=== PATIENT | female | born 1990 | race Caucasian/White ===

== ENCOUNTER → 2017-03-10 | Outpatient (CLI) | payer OTHER | LOC: FIMAGING 11:12 → EEVIPCON 11:12 | PROVIDERS: ATTEND Obstetrics & Gynecology | DX: N63 Unspecified lump in breast (principal) ==

== ENCOUNTER 2017-12-06 15:20 | Emergency (ER) | payer OTHER ==
--- NOTE | 2017-12-06 15:31 | EDPHY ---
H & P Stated Complaint: cough/fever/bosy aches/cp sent post stress test at [facility] 28 w Time Seen by Provider: 12/06/17 15:30 HPI/ROS: CHIEF COMPLAINT: Cough, fever, dyspnea HISTORY OF PRESENT ILLNESS: The patient presents to the emergency department with complaints of cough, fever dyspnea. She is currently 28 weeks . She has developed right posterior pleuritic chest pain over the past day. She denies any asymmetric calf pain or swelling. The patient does report a family history of blood clots although she has no prior history of thromboembolic disease. The patient denies any vaginal bleeding or discharge. She denies dysuria. She does complain of bilateral lower back pain. The patient was seen at her art dealer's office and had an unremarkable evaluation nonstress test. REVIEW OF SYSTEMS: A comprehensive 10 point review of systems is otherwise negative aside from elements mentioned in the history of present illness. Source: Patient Exam Limitations: No limitations - Personal History LMP (Females 10-55): Current Tetanus/Diphtheria Vaccine: Yes - Medical/Surgical History Hx Asthma: No Hx Chronic Respiratory Disease: No Hx Diabetes: No Hx Cardiac Disease: No Hx Renal Disease: No Hx Cirrhosis: No Hx Alcoholism: No Hx HIV/AIDS: No Hx Splenectomy or Spleen Trauma: No Other PMH: 2013 with JABARI - Social History Smoking Status: Never smoked - Physical Exam Exam: General Appearance: Alert, no distress Eyes: Pupils equal and round no pallor or injection ENT, Mouth: Mucous membranes moist Respiratory: There are no retractions, lungs are clear to auscultation Cardiovascular: Tachycardic Gastrointestinal: Gravid, no focal tenderness Neurological: 5/5 strength noted all 4 extremities Skin: Warm and dry, no rashes Musculoskeletal: Neck is supple nontender Extremities: symmetrical, full range of motion Constitutional: Initial Vital Signs Temperature (C) 37.2 C 12/06/17 15:24 Heart Rate 129 H 12/06/17 15:24 Respiratory Rate 20 12/06/17 15:24 Blood Pressure 111/51 L 12/06/17 15:24 O2 Sat (%) 98 12/06/17 15:24 O2 Delivery Mode Room Air Allergies/Adverse Reactions: No Known Allergies Allergy (Verified 12/06/17 15:23) Home Medications: Medication Instructions Recorded Ferrous Sulfate [Iron] 1 tab PO DAILY 09/15/16 Vit27&Calcium/Iron/FA 1 tab PO DAILY 09/15/16 [] Oseltamivir Phosphate [Tamiflu] 75 mg PO BID #10 cap 12/06/17 Medical Decision Making ED Course/Re-evaluation: The patient presents the ED for evaluation of several complaints. She has had fever, myalgias and flu-like illness for the past several days. The patient also has a 1 day history of acute right pleuritic chest pain. The patient does have a family medical history positive for thromboembolic disease. The patient herself has no history of PE or DVT. She was noted to be tachycardic upon arrival. The patient's flu test was positive. The patient's D-dimer test was also elevated. Given her complaints of pleuritic chest pain and tachycardia coupled with her family medical history I did feel it was important to exclude pulmonary embolism as a concurrent diagnosis. A CT pulmonary angiogram was performed which demonstrated no evidence of a PE or pneumonia. The patient was started on Tamiflu in the emergency department and will be given a prescription for Tamiflu for the next 5 days. She is advised to continue to take Tylenol as needed for pain. She will be discharged home with customary aftercare instructions and return precautions. Differential Diagnosis: Differential diagnosis considered includes influenza, pneumonia, pulmonary embolism, dehydration, anemia - Data Points Laboratory Results: Laboratory Results 12/06/17 15:57 12/06/17 15:57 12/06/17 12/06/17 12/06/17 15:57 15:57 15:57 WBC 5.14 10^3/uL 10^3/uL (3.80-9.50) RBC 3.25 10^6/uL L 10^6/uL (4.18-5.33) Hgb 10.9 g/dL L g/dL (12.6-16.3) Hct 30.6 % L % (38.0-47.0) MCV 94.2 fL fL (81.5-99.8) MCH 33.5 pg pg (27.9-34.1) MCHC 35.6 g/dL g/dL (32.4-36.7) RDW 13.2 % % (11.5-15.2) Plt Count 201 10^3/uL 10^3/uL (150-400) MPV 8.6 fL L fL (8.7-11.7) Neut % (Auto) 74.8 % H % (39.3-74.2) Lymph % (Auto) 11.1 % L % (15.0-45.0) [place] % (Auto) 11.7 % % (4.5-13.0) Eos % (Auto) 0.8 % % (0.6-7.6) Baso % (Auto) 0.4 % % (0.3-1.7) Nucleat RBC Rel Count 0.0 % % (0.0-0.2) Absolute Neuts (auto) 3.85 10^3/uL 10^3/uL (1.70-6.50) Absolute Lymphs (auto) 0.57 10^3/uL L 10^3/uL (1.00-3.00) Absolute Monos (auto) 0.60 10^3/uL 10^3/uL (0.30-0.80) Absolute Eos (auto) 0.04 10^3/uL 10^3/uL (0.03-0.40) Absolute Basos (auto) 0.02 10^3/uL 10^3/uL (0.02-0.10) Absolute Nucleated RBC 0.00 10^3/uL 10^3/uL (0-0.01) Immature Gran % 1.2 % H % (0.0-1.1) Immature Gran # 0.06 10^3/uL 10^3/uL (0.00-0.10) D-Dimer 1.21 ug/mLFEU H ug/mLFEU (0.00-0.50) Sodium 139 mEq/L mEq/L (135-145) Potassium 3.6 mEq/L mEq/L (3.5-5.2) Chloride 106 mEq/L mEq/L (97-110) Carbon Dioxide 20 mEq/l L mEq/l (22-31) Anion Gap 13 mEq/L mEq/L (8-16) BUN 5 mg/dL L mg/dL (7-23) Creatinine 0.5 mg/dL L mg/dL (0.6-1.0) Estimated GFR > 60 Glucose 75 mg/dL mg/dL (70-100) Calcium 9.0 mg/dL mg/dL (8.5-10.4) Nasal Influenza A PCR Nasal Influenza B PCR 12/06/17 15:57 WBC RBC Hgb Hct MCV MCH MCHC RDW Plt Count MPV Neut % (Auto) Lymph % (Auto) [place] % (Auto) Eos % (Auto) Baso % (Auto) Nucleat RBC Rel Count Absolute Neuts (auto) Absolute Lymphs (auto) Absolute Monos (auto) Absolute Eos (auto) Absolute Basos (auto) Absolute Nucleated RBC Immature Gran % Immature Gran # D-Dimer Sodium Potassium Chloride Carbon Dioxide Anion Gap BUN Creatinine Estimated GFR Glucose Calcium Nasal Influenza A PCR FLU A DETECTED H (NEGATIVE) Nasal Influenza B PCR NEGATIVE FOR FLU B (NEGATIVE) Medications Given: Discontinued Medications Oseltamivir Phosphate (Tamiflu) 75 mg PO EDNOW ONE Stop: 12/06/17 17:46 Last Admin: 12/06/17 17:56 Dose: 75 mg Departure - Departure Disposition: Home, Routine, Self-Care Clinical Impression: Influenza, Pleuritic pain, Intrauterine Condition: Good Instructions: Influenza (ED) Additional Instructions: 1. Tamiflu as directed for next [address] scan demonstrates no evidence of a blood clot or pneumonia. 3. Tylenol as needed for pain. 4. Return to the ED for markedly worsening symptoms. 5. Please follow up with your art dealer as scheduled. Referrals: Lizett Herman MD [Medical Doctor] - As per Instructions Prescriptions: Oseltamivir Phosphate [Tamiflu] 75 mg PO BID #10 cap
[2017-12-06 16:06] LABS: PLATELET COUNT 201 10^3/uL (150-400)
[2017-12-06] MEDS ORDERED: IOPAMIDOL (ISOVUE 370) 100 ML BTL IV ONE (16:50)
[2017-12-06] MEDS ORDERED: OSELTAMIVIR PHOSPHATE 75 MG CAP PO ONE (17:45)
[2017-12-06 17:58] VITALS: BP 117/61; PULSE 106; O2SAT 100
[2017-12-06 18:47] VITALS: RESP 18; TEMP 98.6
== END 2017-12-06 18:47 | disposition home or self-care (01) ==
DX: O99.512 Diseases of the respiratory system complicating pregnancy, second trimester (principal); J11.1 Influenza due to unidentified influenza virus with other respiratory manifestations; Z3A.28 28 weeks gestation of pregnancy
CPT/HCPCS: Q9967

== ENCOUNTER 2018-02-21 06:00 | Inpatient (IN) | payer OTHER ==
[2018-02-21] MEDS ORDERED: OLIVE OIL 118 ML BTL MISC PRN (06:35)
[2018-02-21] MEDS ORDERED: EPSOM SALT 454 GM TP PRN (06:35)
[2018-02-21] MEDS ORDERED: MISOPROSTOL 200 MCG TAB PR PRN (06:35)
[2018-02-21] MEDS ORDERED: TERBUTALINE SULFATE 1 MG/ML VIAL IV PRN (06:35)
[2018-02-21] MEDS ORDERED: OXYTOCIN/NORMAL SALINE 1,000 ML IV PRN (06:35)
[2018-02-21] MEDS ORDERED: LR 500 ML IV PRN (06:35)
[2018-02-21] MEDS ORDERED: OXYTOCIN/NORMAL SALINE 500 ML IV SCH (06:35)
[2018-02-21] MEDS ORDERED: LIDOCAINE 1% 300 MG/30 ML SDV SC PRN (06:35)
[2018-02-21 07:19] LABS: PLATELET COUNT 188 10^3/uL (150-400)
[2018-02-21] MEDS ORDERED: AMMONIA AROMATIC 1 EACH AMP IH ONE (07:47)
[2018-02-21] MEDS ORDERED: OLIVE OIL 118 ML BTL ONE (07:47)
[2018-02-21] MEDS ORDERED: LIDOCAINE 1% 300 MG/30 ML SDV ONE (07:47)
[2018-02-21] MEDS ORDERED: TERBUTALINE SULFATE 1 MG/ML VIAL ONE (07:47)
[2018-02-21] MEDS ORDERED: MISOPROSTOL 200 MCG TAB ONE (07:48)
[2018-02-21] MEDS ORDERED: OXYTOCIN 10 UNIT/ML VIAL ONE (07:48)
--- NOTE | 2018-02-21 07:51 | PDGENHP ---
History and Physical History and Physical: HPI: Patient is a 27 yo G 3 P 2 who presents to L&D for elective IOL. She had a king bulb placed in the office yesterday at 5 pm and went home for the night. She states baby is active, denies painful contractions, vaginal bleeding or LOF. EDC: 02/25/2018 which is based on 12 week U/S. Her is complicated by: - short interval - pos chlamydia at NOB intake 07/31, NACHO neg 09/30 - anemia - has been taking iron supplement throughout Review of Systems: Constitutional: Denies any fever, chills, or fatigue HEENT: denies any visual changes, difficulty swallowing, hearing loss Cardiovascular: Denies any chest pain, palpitations, leg swelling Respiratory: denies any cough, wheezing, or shortness of breathe GI: Denies any nausea, vomiting, diarrhea, constipation : denies any dysuria, urgency, frequency, vaginal bleeding Musculoskeletal: denies any muscle or bone pain Skin: denies any rashes Neuro: denies any headache, seizures, lightheadedness, dizziness, or loss of consciousness Psychiatric: denies any depression, anxiety, or SI/HI thoughts HISTORY: Previous OB history: uncomplicated X2 Past medical history: pos chlamydia 07/31, NACHO neg Past surgical history: non-contributory Medications: PNV, ferrous sulfate Allergies (list reaction): NKDA LABS: Rh: O+ ABS: Neg Rubella: Immune HbsAg: NR HIV: NR VDRL: NR 1hr: 109 GC: Neg Chlamydia: Pos 08/03/17, NACHO neg 09/28/17 Pap: Normal 01/27 GBS: neg BMI: (prepreg) 22 PHYSICAL EXAM: Constitutional: WN, A&Ox3 HEENT: normocephalic atraumatic, supple Heart: RRR, no murmur Chest: CTA-B Abdomen: Soft, nontender, gravid SVE: 3/50/-3 Extremities: mild edema, negative felicia's sign Neuro: grossly normal Psych: normal affect assessment: Reassuring FHTs, baseline 140 +accels, no decels, moderate variability Contractions: toco irregular, mild contractions Assessment: 1) 27 yo G 3 P 2 with IUP@ 39.3 weeks EGA 2) Elective IOL 3) GBS neg Plan: 1) Admit to L&D 2) King bulb removed with tugging - will start pitocin 3) pain relief PRN- would like epidural 4) AROM when able 5) Anticipate
[2018-02-21] MEDS: LR 1,000 ML IV PRN ×2 (08:24→13:31)
[2018-02-21] MEDS ORDERED: fentaNYL 200 MCG, BUPIVACAINE 0.5% 20 ML in NS 100 ML EP SCH (11:30)
[2018-02-21] MEDS ORDERED: BUPIVACAINE 0.25% 30 ML SDV ONE ×2 (11:46→13:22)
[2018-02-21] MEDS ORDERED: PHENYLEPHRINE HCL 100 MCG/ML SYR ONE (11:47)
[2018-02-21] MEDS ORDERED: PHENYLEPHRINE HCL 100 MCG/ML SYR IVP PRN (12:14)
--- NOTE | 2018-02-21 12:14 | PREANESOB ---
Obstetric Pre-Anesthesia Info - General Info Proposed Procedure: JABARI : 3 Para: 2 TITI: 02/25/18 Gestational Age: 39 week(s) and 3 day(s) - Info Status: Full Term, [place] Monitors: External FHR Pattern: Reassuring - Labor Status Pitocin: In Use PIH: No Indications for Labor Analgesia: Augmentation of Labor, Pain Control Labor Epidural: Proposed Anesthesia Allergies/Adverse Reactions: Allergy/AdvReac Type Severity Reaction Status Date / Time No Known Allergies Allergy Verified 12/06/17 15:23 Home Medications: Medication Instructions Recorded Ferrous Sulfate [Iron] 1 tab PO DAILY 09/15/16 Vit27&Calcium/Iron/FA 1 tab PO DAILY 09/15/16 [] Visit Medications: Generic Name Dose Route Start Last Admin Trade Name Freq PRN Reason Stop Dose Admin Lactated Ringer's 1,000 mls @ 0 mls/hr 02/21/18 06:35 02/21/18 08:24 Lr IV 02/22/18 06:34 1,000 mls PRN PRN Administration SEE PROTOCOL CONDITIONS Protocol Per Protocol Lactated Ringer's 500 mls @ 500 mls/hr 02/21/18 06:35 Lr IV 02/21/18 17:44 PRN PRN Maternal Hypotension Oxytocin/Sodium Chloride 1,000 mls @ 0 mls/hr 02/21/18 06:35 Pitocin 20 Units/Ns (Premix) IV PRN PRN Post Bleeding As Directed Oxytocin/Sodium Chloride 500 mls @ 0 mls/hr 02/21/18 06:35 02/21/18 08:09 Pitocin 30 Units/Ns (Premix) IV 08/20/18 06:34 500 mls CONT COSMO Administration Protocol Per Protocol Fentanyl 200 mcg/ Bupivacaine 100 mls @ 0 mls/hr 02/21/18 11:30 HCl 20 ml/ Sodium Chloride EP 03/03/18 11:29 CONT COSMO Protocol As Directed Ibuprofen 600 mg 02/21/18 06:35 Motrin PO 08/20/18 06:34 Q6HRS PRN post , inflammation Lidocaine HCl 300 mg 02/21/18 06:35 Lidocaine Hcl 1% SC 08/20/18 06:34 ONCE PRN episiotomy Magnesium Sulfate 454 gm 02/21/18 06:35 Epsom Salt TP 08/20/18 06:34 Q1H PRN perineal discomfort Misoprostol 800 - 1,000 mcg 02/21/18 06:35 Cytotec LA ONCE PRN Vaginal Atony/Bleeding Dighton Oil 118 ml 02/21/18 06:35 Sweet Oil MISC 08/20/18 06:34 ONCE PRN perineal massage Terbutaline Sulfate 0.25 mg 02/21/18 06:35 Brethine IV 08/20/18 06:34 ONCE PRN Tachysystole Discontinued Medications Generic Name Dose Route Start Last Admin Trade Name Maritza PRN Reason Stop Dose Admin Ammonia (Aromatic Spirit) Confirm 02/21/18 07:47 Ammonia Aromatic Administered 02/21/18 07:48 Dose 1 each IH .STK-MED ONE Bupivacaine HCl Confirm 02/21/18 11:46 Sensorcaine 0.25% Sdv Administered 02/21/18 11:47 Dose 30 ml .ROUTE .STK-MED ONE Lidocaine HCl Confirm 02/21/18 07:47 Lidocaine Hcl 1% Administered 02/21/18 07:48 Dose 300 mg .ROUTE .STK-MED ONE Misoprostol Confirm 02/21/18 07:48 Cytotec Administered 02/21/18 07:49 Dose 1,000 mcg .ROUTE .STK-MED ONE Dighton Oil Confirm 02/21/18 07:47 Sweet Oil Administered 02/21/18 07:48 Dose 118 ml .ROUTE .STK-MED ONE Oxytocin Confirm 02/21/18 07:48 Pitocin Administered 02/21/18 07:49 Dose 40 unit .ROUTE .STK-MED ONE Phenylephrine HCl Confirm 02/21/18 11:47 Neosynephrine Administered 02/21/18 11:48 Dose 1,000 mcg .ROUTE .STK-MED ONE Terbutaline Sulfate Confirm 02/21/18 07:47 Brethine Administered 02/21/18 07:48 Dose 1 mg .ROUTE .STK-MED ONE - Vital Signs Height/Weight (Nursing): Height 175.26 cm Weight 80.739 kg - Focused Exam Neck exam: FROM Mallampati Score: Class 2 Mouth exam: normal dental/mouth exam Pulmonary: no respiratory distress Cardiovascular: regular rate and rhythym Labs: 02/21/18 07:00 Patient ABO/Rh O POSITIVE 02/21/18 07:00
--- NOTE | 2018-02-21 12:25 | POSTANESTH ---
Post Anesthetic Evaluation Cardiovascular Status: Normal, Stable, Similar to Pre-Op Cond Respiratory Status: Normal, Stable, Similar to Pre-op Cond. Level of Consciousness/Mental Status: Can Participate in Eval, Alert and Oriented Pain Control: Inadeq, Add Tx Required (Still having some pain, wendy Rt side. She pushed PCEA button.) Nausea/Vomiting Control: Adequate, Prn Tx Ordered Complications Possibly Related to Anesthesia: None Noted
[2018-02-21] MEDS ORDERED: fentaNYL 2MCG/ML/BUP 0.1% RTU 100 ML EP SCH (12:30)
[2018-02-21] MEDS ORDERED: LR 500 ML IV SCH (12:30)
[2018-02-21] MEDS ORDERED: fentaNYL 100 MCG/2 ML INJ ONE (13:22)
[2018-02-21] MEDS ORDERED: SIMETHICONE 80 MG TAB CHEW PO PRN (17:03)
[2018-02-21] MEDS ORDERED: ACETAMINOPHEN 325 MG TAB PO PRN (17:03)
[2018-02-21] MEDS ORDERED: DOCUSATE SODIUM 100 MG CAP PO PRN (17:03)
[2018-02-21] MEDS ORDERED: HYDROCORTISONE 0.5% CREAM TP PRN (17:03)
[2018-02-21] MEDS ORDERED: HYDROCODONE/APAP 5/325 TAB PO PRN (17:03)
--- NOTE | 2018-02-21 17:17 | OBDEL ---
Info Type: Vaginal Presentation at Delivery: Vertex L&D Analgesia/Anesthesia Type: Epidural GBS+: No Intrapartum Medications: Generic Name Dose Route Start Last Admin Trade Name Freq PRN Reason Stop Dose Admin Lactated Ringer's 1,000 mls @ 0 mls/hr 02/21/18 06:35 02/21/18 13:31 Lr IV 02/22/18 06:34 1,000 mls PRN PRN Administration SEE PROTOCOL CONDITIONS Protocol Per Protocol Oxytocin/Sodium Chloride 500 mls @ 0 mls/hr 02/21/18 06:35 02/21/18 08:09 Pitocin 30 Units/Ns (Premix) IV 08/20/18 06:34 500 mls CONT COSMO Administration Protocol Per Protocol - Hospital Course Intrapartum: 02/21/18 17:14 Elective IOL at 39.4 weeks ega Mario bulb overnight, pitocin induction in AM, epidural placed at noon, AROM at 1431 - advanced to complete at 1551 Indications for Delivery: Elective Vaginal Delivery - Delivery Provider Delivery Physician/CNM: Ely Blakely Proctoring Provider: Lizett Herman - Labor and Delivery Onset of Contractions Date: 02/21/18 Onset of Contractions Time: 09:00 Onset of Contractions Type: Induced Rupture of Membranes Date: 02/21/18 Rupture of Membranes Time: 14:31 Rupture of Membranes Type: Artificial Amniotic Fluid Color: Clear Dilation Complete Date: 02/21/18 Dilation Complete Time: 15:51 Placenta Delivery Date: 02/21/18 Placenta Delivery Time: 16:11 Total Hours of Labor: 7 Non-surgical Procedures: Amniotomy [place] Data TITI: 02/25/18 Gestational Age: 39 week(s) and 3 day(s) [place] Delivery Date: 02/21/18 Delivery Time: 16:02 Sex of Infant: Female Score (1 Min): 8 Score (5 Min): 9 ICD10 Worksheet Patient Problems: Problems Problem Status Onset SROM (spontaneous rupture of membranes) Acute (spontaneous vaginal delivery) Acute r/o PIH Acute - ICD10 Problem Qualifiers (1) (spontaneous vaginal delivery)
[2018-02-21] MEDS: IBUPROFEN 600 MG TAB PO PRN (18:11)
[2018-02-21] MEDS ORDERED: FERROUS SULFATE 325 MG TAB PO SCH (21:00)
[2018-02-22] MEDS: IBUPROFEN 600 MG TAB PO PRN ×3 (02:18→15:36)
[2018-02-22 02:54] VITALS: BP 101/57
--- NOTE | 2018-02-22 15:02 | OBPP ---
Progress Note Assessment/Plan: Assessment:27 yo almost 24 hours s/p , doing well. Desires homegoing. Plan: dc home, pp dc instructions reviewed. See instruction sheet and dc summary. 02/22/18 14:56 Subjective/ Course: 02/22/18 14:57 Doing well, BF going well. Normal amount of lochia. Voiding and ambulating without difficulty. Has some discomfort in her tailbone area. Objective: 02/22/18 05:55 Patient ABO/Rh O POSITIVE 02/21/18 07:00 Temp Pulse Resp BP Pulse Ox 36.6 C 77 16 101/57 L 96 02/22/18 02:40 02/22/18 02:40 02/22/18 02:40 02/22/18 02:40 02/22/18 02:40 CV - RRR Chest - CTAB abd - fundus u-3 and NT ext - no edema, no calf tenderness Uterine Position/Fundal Height: Umbilicus -3 Uterine Tone: Firm
--- NOTE | 2018-02-22 15:38 | OBGCSDC ---
General Delivery Information - General Info : 3 Para: 3 Type: Vaginal L&D Analgesia/Anesthesia Type: Epidural Admission Date: 02/21/18 Labs: Patient ABO/Rh O POSITIVE 02/21/18 07:00 Hct 32.5 % (38.0-47.0) L 02/22/18 05:55 - Hospital Course Intrapartum: 02/21/18 17:14 Elective IOL at 39.4 weeks ega Mario bulb overnight, pitocin induction in AM, epidural placed at noon, AROM at 1431 - advanced to complete at 1551 : 02/22/18 14:57 Doing well, BF going well. Normal amount of lochia. Voiding and ambulating without difficulty. Has some discomfort in her tailbone area. Vaginal - Delivery Provider Delivery Physician/CNM: Ely Blakely - Diagnosis Labor: Induced Rupture of Membranes Type: Artificial Amniotic Fluid Color: Clear - Procedures Non-surgical Procedures: Amniotomy - Delivery Non-surgical Procedures: Amniotomy Data TITI: 02/25/18 Gestational Age: 39 week(s) and 4 day(s) [place] Delivery Date: 02/21/18 Delivery Time: 16:02 Sex of : Female Alice Weight (gm): 3428 g Score (1 Min): 8 Score (5 Min): 9 Discharge Information - Discharge Information Condition: Good Instruction/Follow Up: See Instruction Sheet, Four Weeks ([facility] appt at [facility]), Six Weeks (regular 6 week check with a provider)
== END 2018-02-22 18:58 | disposition home or self-care (01) | DRG 775 ==
LOC: FLD 06:25 → FOB 20:00
PROVIDERS: ADMIT Obstetrics & Gynecology; ATTEND Obstetrics & Gynecology
PROC: 3E033VJ Introduction of Other Hormone into Peripheral Vein, Percutaneous Approach (ICD-10-PCS; principal; 2018-02-21)
PROC: 10907ZC Drainage of Amniotic Fluid, Therapeutic from Products of Conception, Via Natural or Artificial Opening (ICD-10-PCS; principal; 2018-02-21)
PROC: 10E0XZZ Delivery of Products of Conception, External Approach (ICD-10-PCS; principal; 2018-02-21)
DX: O99.02 Anemia complicating childbirth (principal); Z3A.39 39 weeks gestation of pregnancy; Z37.0 Single live birth
CPT/HCPCS: J2370; J2590; J3010; J3105

== ENCOUNTER 2018-03-12 15:51 | Emergency (ER) | payer OTHER ==
--- NOTE | 2018-03-12 16:05 | EDPHY ---
H & P Stated Complaint: FEVER/LOW BACK PAIN/DYSURIA Time Seen by Provider: 03/12/18 16:03 HPI/ROS: HPI: This is a 28-year-old female who presents with Chief Complaint: FEVER/LOW BACK PAIN/DYSURIA Location: Suprapubic, low back Quality: Discomfort Duration: 3 days Signs and Symptoms: no fever, no nausea, no vomiting, no hematemesis, no blood in stool, no abdominal bloating, no diarrhea,+ back pain, + urinary symptoms, no vaginal discharge/bleeding, no indigestion, no chest pain, no shortness of breath Timing: Gradual onset Severity: Moderate Context: Patient gave vaginal E approximately 2 weeks ago and is currently breast-feeding. Presents with complaints of suprapubic and lower back discomfort accompanied by burning with urination and urinary hesitancy. She had a fever last. Denies any vaginal bleeding/discharge/nausea/vomiting/ diarrhea. Patient is eating and drinking without difficulty. LMP over 28 days ago. Patient denies any injury or recent workout session. Back pain is nonradiating in nature and she denies paresthesias/weakness/decreased range of motion. Patient reports that OBGYN performed an ultrasound 5 days ago that showed some retained products but no vascular supply. She called Dr. Rocha today and was advised to go to the emergency room. Reports having daily bowel movements. Denies any hemorrhoids. Patient reports that she had influenza earlier in the year. 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 Family history noncontributory. CONSTITUTIONAL: Extremely polite and cooperative adult white female, awake and alert, no obvious distress HEENT: Atraumatic and normocephalic, PERRL, EOMI. Nares patent; no rhinorrhea; no nasal mucosal edema. Tympanic membranes clear. Oropharynx clear, no exudate and moist pink mucosa. Airway patent. No lymphadenopathy. No meningismus. Cardiovascular: Normal S1/S2, tachycardia, regular rhythm, without murmur rub or gallop. PULMONARY/CHEST: Symmetrical and nontender. Clear to auscultation bilaterally. Good air movement. No accessory muscle usage. ABDOMEN: Soft, nondistended, mild suprapubic tenderness, no rebound, no guarding, no peritoneal signs, no masses or organomegaly. No CVAT. PELVIC: Patient politely declines EXTREMITIES: 2/2 pulses, strength 5/5, no deformities, no clubbing, no cyanosis or edema. NEUROLOGICAL: no focal neuro deficits. GCS 15. SKIN: Warm and dry, no erythema. no rash. Good capillary refill. Source: Patient Exam Limitations: No limitations - Personal History LMP (Females 10-55): Over 28 Days Ago Current Tetanus/Diphtheria Vaccine: Yes - Medical/Surgical History Hx Asthma: No Hx Chronic Respiratory Disease: No Hx Diabetes: No Hx Cardiac Disease: No Hx Renal Disease: No Hx Cirrhosis: No Hx Alcoholism: No Hx HIV/AIDS: No Hx Splenectomy or Spleen Trauma: No Other PMH: 2013 & 2016 with JABARI, possible PIH with 1st - Social History Smoking Status: Never smoked Constitutional: Initial Vital Signs Temperature (C) 37.4 C 03/12/18 15:54 Heart Rate 119 H 03/12/18 15:54 Respiratory Rate 20 03/12/18 15:54 Blood Pressure 117/62 03/12/18 15:54 O2 Sat (%) 97 03/12/18 15:54 O2 Delivery Mode Room Air Allergies/Adverse Reactions: No Known Allergies Allergy (Verified 03/12/18 15:53) Home Medications: Medication Instructions Recorded Vit27&Calcium/Iron/FA 1 tab PO DAILY 09/15/16 [] Ciprofloxacin [Cipro] 500 mg PO BID #14 tab 03/12/18 Medical Decision Making - Diagnostics Imaging Results: Imaging Impressions Pelvic/Renal Ultrasound 03/12/18 16:31 Impression: Enlarged uterus. No evidence for retained products of conception. Minimal fluid in the endometrial cavity. Results called and discussed with Bailey Cole PA-C on March 12, 2018 at 1733 hours. ED Course/Re-evaluation: Labs, urinalysis, IV fluids, IV medications, pelvic ultrasound ordered Vital signs stable upon arrival. No systemic signs. Given 1 L normal saline, IV Toradol, IV Zofran Urinalysis shows infection; sent for culture; IV Rocephin given an Rx for Cipro for early pyelonephritis. 1735: Called by radiologist who advised that ultrasound shows no retained products; there is some fluid in the endometrium. Unable to see ultrasound outpatient to compare. 1749: Reassessed patient and discuss laboratory and imaging. Offered patient admission versus outpatient follow-up with Dr. Rocha. Patient would like to be discharged home with antibiotics to treat urinary tract infection will follow up with Dr. Rocha in the next 2-3 days. Vital signs improved at discharge. Tachycardia resolved. 181: Spoke with Dr. Rocha on the phone and reviewed all laboratory findings and ultrasound findings. She believes that this may be an early UTI as well and less likely endometritis. She has for the patient to call her office tomorrow morning in order to get a follow-up appointment on Tuesday. This patient was seen under the supervision of my secondary supervising physician. I evaluated care for this patient independently. Discussed this patient with Dr. Rudolph who did not see the patient. Differential Diagnosis: Abdominal pain in a female including but not limited to ovarian cyst, pelvic inflammatory disease, ovarian torsion, urinary tract infection, and appendicitis. - Data Points Laboratory Results: Laboratory Results 03/12/18 16:10 03/12/18 16:10 03/12/18 03/12/18 03/12/18 16:10 16:10 16:10 WBC 8.28 10^3/uL 10^3/uL (3.80-9.50) RBC 4.21 10^6/uL 10^6/uL (4.18-5.33) Hgb 13.7 g/dL g/dL (12.6-16.3) Hct 39.1 % % (38.0-47.0) MCV 92.9 fL fL (81.5-99.8) MCH 32.5 pg pg (27.9-34.1) MCHC 35.0 g/dL g/dL (32.4-36.7) RDW 12.4 % % (11.5-15.2) Plt Count 270 10^3/uL 10^3/uL (150-400) MPV 8.6 fL L fL (8.7-11.7) Neut % (Auto) 80.9 % H % (39.3-74.2) Lymph % (Auto) 10.0 % L % (15.0-45.0) [place] % (Auto) 8.1 % % (4.5-13.0) Eos % (Auto) 0.2 % L % (0.6-7.6) Baso % (Auto) 0.4 % % (0.3-1.7) Nucleat RBC Rel Count 0.0 % % (0.0-0.2) Absolute Neuts (auto) 6.70 10^3/uL H 10^3/uL (1.70-6.50) Absolute Lymphs (auto) 0.83 10^3/uL L 10^3/uL (1.00-3.00) Absolute Monos (auto) 0.67 10^3/uL 10^3/uL (0.30-0.80) Absolute Eos (auto) 0.02 10^3/uL L 10^3/uL (0.03-0.40) Absolute Basos (auto) 0.03 10^3/uL 10^3/uL (0.02-0.10) Absolute Nucleated RBC 0.00 10^3/uL 10^3/uL (0-0.01) Immature Gran % 0.4 % % (0.0-1.1) Immature Gran # 0.03 10^3/uL 10^3/uL (0.00-0.10) Sodium 143 mEq/L mEq/L (135-145) Potassium 3.9 mEq/L mEq/L (3.5-5.2) Chloride 106 mEq/L mEq/L (97-110) Carbon Dioxide 23 mEq/l mEq/l (22-31) Anion Gap 14 mEq/L mEq/L (8-16) BUN 13 mg/dL mg/dL (7-23) Creatinine 0.7 mg/dL mg/dL (0.6-1.0) Estimated GFR > 60 Glucose 113 mg/dL H mg/dL (70-100) Calcium 9.4 mg/dL mg/dL (8.5-10.4) Beta HCG, Qual NEGATIVE Urine Color Urine Appearance Urine pH Ur Specific [place] Urine Protein Urine Ketones Urine Blood Urine Nitrate Urine Bilirubin Urine Urobilinogen Ur Leukocyte Esterase Urine RBC Urine WBC Ur Epithelial Cells Urine Bacteria Urine Mucus Urine Glucose 03/12/18 15:56 WBC RBC Hgb Hct MCV MCH MCHC RDW Plt Count MPV Neut % (Auto) Lymph % (Auto) [place] % (Auto) Eos % (Auto) Baso % (Auto) Nucleat RBC Rel Count Absolute Neuts (auto) Absolute Lymphs (auto) Absolute Monos (auto) Absolute Eos (auto) Absolute Basos (auto) Absolute Nucleated RBC Immature Gran % Immature Gran # Sodium Potassium Chloride Carbon Dioxide Anion Gap BUN Creatinine Estimated GFR Glucose Calcium Beta HCG, Qual Urine Color YELLOW Urine Appearance CLEAR Urine pH 5.0 (5.0-7.5) Ur Specific [place] 1.006 (1.002-1.030) Urine Protein NEGATIVE (NEGATIVE) Urine Ketones NEGATIVE (NEGATIVE) Urine Blood NEGATIVE (NEGATIVE) Urine Nitrate NEGATIVE (NEGATIVE) Urine Bilirubin NEGATIVE (NEGATIVE) Urine Urobilinogen NEGATIVE EU EU (0.2-1.0) Ur Leukocyte Esterase 1+ H (NEGATIVE) Urine RBC 1-3 /hpf /hpf (0-3) Urine WBC 5-10 /hpf H /hpf (0-3) Ur Epithelial Cells TRACE /lpf /lpf (NONE-1+) Urine Bacteria 1+ /hpf H /hpf (NONE SEEN) Urine Mucus TRACE /lpf /lpf (NONE-1+) Urine Glucose NEGATIVE (NEGATIVE) Medications Given: Discontinued Medications Sodium Chloride (Ns) 1,000 mls @ 0 mls/hr IV ONCE ONE; Wide Open PRN Reason: Protocol Stop: 03/12/18 16:08 Last Admin: 03/12/18 16:30 Dose: 1,000 mls Ketorolac Tromethamine (Toradol) 30 mg IVP EDNOW ONE Stop: 03/12/18 16:08 Last Admin: 03/12/18 16:30 Dose: 30 mg Ondansetron HCl (Zofran) 4 mg IVP EDNOW ONE Stop: 03/12/18 16:08 Last Admin: 03/12/18 16:30 Dose: 4 mg Departure - Departure Disposition: Home, Routine, Self-Care Clinical Impression: Lower urinary tract infection, acute Condition: Good Instructions: Urinary Tract Infection in Women (ED) Additional Instructions: Consume a minimum of 8-10 glasses of water or electrolyte fluid replacement drinks that include Gatorade, Powerade, Pedialyte. Eat a bland diet for the next 48 hours and then slowly advance as tolerated. Take Ciprofloxacin twice daily x [address] Rocha's office tomorrow for follow up appointment time on Tuesday. Return to the ER immediately if you experience new, continued or worsening abdominal pain, fevers/chills, inability to tolerate oral intake, new pain, or any other symptoms that concern you. Referrals: Irene Rocha DO [Doctor of Osteopathy] - As per Instructions Prescriptions: Ciprofloxacin [Cipro] 500 mg PO BID #14 tab
[2018-03-12] MEDS ORDERED: KETOROLAC 30 MG/1 ML SDV IVP ONE (16:07)
[2018-03-12] MEDS ORDERED: ONDANSETRON 4 MG/2 ML VIAL IVP ONE (16:07)
[2018-03-12] MEDS ORDERED: NS 1,000 ML IV ONE (16:07)
[2018-03-12 16:22] LABS: PLATELET COUNT 270 10^3/uL (150-400)
[2018-03-12] MEDS ORDERED: KETOROLAC 30 MG/1 ML SDV ONE (16:36)
[2018-03-12] MEDS ORDERED: cefTRIAXone 2 GM in STERILE WATER INJ 20 ML IV ONE (17:36)
[2018-03-12 18:35] VITALS: BP 112/67
== END 2018-03-12 18:34 | disposition home or self-care (01) ==
DX: N39.0 Urinary tract infection, site not specified (principal); B96.89 Other specified bacterial agents as the cause of diseases classified elsewhere; E86.9 Volume depletion, unspecified
CPT/HCPCS: 96374; J0696; J1885; J2405